=== PATIENT | male | born 1995 | race Caucasian/White ===

== ENCOUNTER 2022-12-10 07:25 | Emergency (ER) | payer BC, SELFPAY | END 2022-12-10 08:07 | disposition home or self-care (01) | LOC: NAV ERS 07:25 | DX: J20.9 Acute bronchitis, unspecified (principal); J01.90 Acute sinusitis, unspecified; B96.89 Other specified bacterial agents as the cause of diseases classified elsewhere; B30.9 Viral conjunctivitis, unspecified | CPT/HCPCS: 99283 ==

== ENCOUNTER 2023-06-15 09:53 | Emergency (ER) | payer BC | END 2023-06-15 10:43 | disposition home or self-care (01) | LOC: NAV ERS 09:53 | DX: J01.90 Acute sinusitis, unspecified (principal) | CPT/HCPCS: 99283 ==

== ENCOUNTER 2024-06-15 15:37 | Emergency (ER) | payer BC | END 2024-06-15 17:40 | disposition home or self-care (01) | LOC: NAV ERS 15:37 | DX: J45.909 Unspecified asthma, uncomplicated (principal) | CPT/HCPCS: 71045; 87428 ==

== ENCOUNTER 2025-03-31 15:52 | Emergency (ER) | payer BC ==
[2025-03-31] MEDS ORDERED: predniSONE 20 MG TAB ONE (16:35)
== END 2025-03-31 16:40 | disposition home or self-care (01) ==
LOC: NAV ERS 15:52
DX: B34.9 Viral infection, unspecified (principal); J45.909 Unspecified asthma, uncomplicated; Z79.51 Long term (current) use of inhaled steroids
CPT/HCPCS: 99283; J7512